=== PATIENT | male | born 1985 | race African-American/Black ===

== ENCOUNTER 2019-04-14 18:26 | Emergency (ER) | payer BC ==
[2019-04-14 18:31] VITALS: BP 157/62; PULSE 80; TEMP 98; BMI 21.2
--- NOTE | 2019-04-14 19:10 | PDOC ---
History of Present Illness - General Chief Complaint: Back Pain Stated Complaint: BACK PAIN Time Seen by Provider: 04/14/19 18:44 History Source: Patient Exam Limitations: No Limitations Past History - Travel Traveled outside of the country in the last 30 days: No Close contact w/someone who was outside of country & ill: No - Past Medical History Allergies/Adverse Reactions: Allergies Allergy/AdvReac Type Severity Reaction Status Date / Time No Known Allergies Allergy Verified 04/14/19 18:31 Home Medications: Ambulatory Orders Penicillin V Potassium [Pen Vee K -] 500 mg PO TID 12/25/15 Cyclobenzaprine HCl [Flexeril -] 10 mg PO HS #10 tablet 04/14/19 Ibuprofen 600 mg PO Q6H #30 tablet 04/14/19 COPD: No - Psycho Social/Smoking Cessation Hx Smoking History: Never smoked Have you smoked in the past 12 months: Yes Number of Cigarettes Smoked Daily: 20 Hx Alcohol Use: No Drug/Substance Use Hx: No Substance Use Type: None Review of Systems - Review of Systems Able to Perform ROS?: Yes Comments:: 04/14/19 19:08 CONSTITUTIONAL: Absent: fever, chills, diaphoresis, generalized weakness, malaise, loss of appetite GASTROINTESTINAL: Absent: abdominal pain, abdominal distension, nausea, vomiting, diarrhea, constipation, melena, hematochezia GENITOURINARY: Absent: dysuria, frequency, urgency, hesitancy, hematuria, flank pain, genital pain MUSCULOSKELETAL: Present: low back pain Absent: arthralgia, joint swelling SKIN: Absent: rash, itching, pallor NEUROLOGIC: Absent: headache, focal weakness or paresthesias, dizziness, unsteady gait, seizure, mental status changes, bladder or bowel incontinence PSYCHIATRIC: Absent: anxiety, depression, suicidal or homicidal ideation, hallucinations. Is the patient limited Beninese proficient: No *Physical Exam - Vital Signs Last Vital Signs Temp Pulse Resp BP Pulse Ox 98 F 80 18 157/62 100 04/14/19 18:28 04/14/19 18:28 04/14/19 18:28 04/14/19 18:28 04/14/19 18:28 - Physical Exam 04/14/19 19:09 GENERAL: Well developed, well nourished. Awake and alert. No acute distress. NECK: Supple. Full ROM. No JVD. Carotid pulses 2+ and symmetric, without bruits. No thyromegaly. No lymphadenopathy. MUSCULOSKELETAL TTP of the L paraspinous muscles, L3-L5, with palpable knot. No midline tenderness, negative straight leg raise test. Decreased ROM of the back d/t pain. Normal range of motion at all joints. No bony deformities or tenderness. No CVA tenderness. EXTREMITIES: No cyanosis. No clubbing. No edema. No calf tenderness. SKIN: Warm and dry. Normal capillary refill. No rashes. No jaundice. NEUROLOGICAL: Alert, awake, appropriate. Cranial nerves 2-12 intact. No deficits to light touch and temperature in face, upper extremities and lower extremities. No motor deficits in the in face, upper extremities and lower extremities. Normoreflexic in the upper and lower extremities. Normal speech. Toes are down- going bilaterally. Gait is normal without ataxia. PSYCHIATRIC: Cooperative. Good eye contact. Appropriate mood and affect. Medical Decision Making - Medical Decision Making 04/14/19 19:23 The patient is a 34-year-old male no past medical history who presents the ER with 1 day of low back pain. 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 He states that the pain was very strong so he called out of work and came to the ER for evaluation. He denies fevers, chills, trauma, nausea, vomiting, urinary symptoms, saddle anesthesia, bladder or bowel incontinence and numbness and tingling to the extremities. A/P: Low back pain -Pt with TTP of the L paraspinous muscles, L3-L5, with palpable knot consistent with muscle spasm. No midline tenderness, negative straight leg raise test. -No trauma, or fever. No saddle anesthesia or bladder/bowel incontinence. No CVA tenderness. -Pt is neurologically intact on exam with no focal findings. -Toradol given with relief of symptoms -DC home. Ortho follow up given for if symptoms do not resolve. -I discussed the physical exam findings, ancillary test results and final diagnoses with the patient. I answered all of the patient's questions. The patient was satisfied with the care received and felt comfortable with the discharge plan and treatment plan. The Patient agrees to follow up with the primary care physician/specialist within 24-72 hours. Return precautions were given. Discharge - Discharge Information Problems reviewed: Yes Clinical Impression/Diagnosis: Low back pain Qualifiers: Chronicity: acute Back pain laterality: left Sciatica presence: without sciatica Qualified Code(s): M54.5 - Low back pain Condition: Stable Disposition: HOME - Admission No - Follow up/Referral Referrals: Derrick Fisher DO [Staff Physician] - - Patient Discharge Instructions Patient Printed Discharge Instructions: DI for Low Back Pain Additional Instructions: You have low back pain due to a muscle spasm. Please take ibuprofen 600 mg 4 times a day not to exceed 3000 mg a day starting tomorrow. You were also prescribed Flexeril. Please take this medication every 8 hours for the first day. Then take the medication before you go to bed. Do not drive after taking this medication as it may make you sleepy. You may use warm compresses on your back to help with her symptoms. Please follow-up with your primary care doctor. If your symptoms do not resolve in 3-5 days, follow-up with orthopedics. A referral has been provided for you. Return to the emergency department if you have worsening back pain, bladder or bowel incontinence, numbness and tingling in her legs, changes in the way you walk, or any new or worsening symptoms. - Post Discharge Activity Work/Back to School Note: Back to Work
[2019-04-14] MEDS ORDERED: KETOROLAC TROMETHAMINE 30 MG/1 ML VIAL IM ONE (19:20)
[2019-04-14] MEDS ORDERED: LIDOCAINE 5% TOPICAL PATCH TP ONE (19:21)
[2019-04-14] MEDS ORDERED: KETOROLAC TROMETHAMINE 30 MG/1 ML VIAL ONE (19:24)
[2019-04-14] MEDS ORDERED: LIDOCAINE 5% TOPICAL PATCH ONE (19:24)
== END 2019-04-14 19:40 | disposition home or self-care (01) ==
LOC: JERFT 18:26
PROC: 3E0233Z Introduction of Anti-inflammatory into Muscle, Percutaneous Approach (ICD-10-PCS; principal; 2019-04-14)
DX: M54.5 Low back pain (principal); Z87.891 Personal history of nicotine dependence
CPT/HCPCS: 99282-25

== ENCOUNTER 2019-05-15 22:52 | Emergency (ER) | payer BC ==
[2019-05-15 22:56] VITALS: BP 143/76; PULSE 64; TEMP 98; BMI 21.2
--- NOTE | 2019-05-16 00:37 | PDOC ---
History of Present Illness - General Chief Complaint: Pain Stated Complaint: BACK PAIN Time Seen by Provider: 05/16/19 00:37 - History of Present Illness Initial Comments: HPI: 34yo M with no reported PMH presenting with lower back pain since 10am today. Patient states he has had this pain before. Has not taken anything for his pain. Reports bending down and then feeling pain on the right side of his lower back. Denies saddle anesthesia or urinary/stool incontinence. No night sweats or unexpected weight changes. Denies fever, chills, chest pain, or shortness of breath. PCP: none ROS: Constitutional: no fever, no chills HEENT: no throat pain, no dysphagia Cardiovascular: no chest pain, no palpitations Respiratory: no cough, no shortness of breath Gastrointestinal: no abdominal pain, no nausea Genitourinary: no dysuria, no hematuria Musculoskeletal: no myalgia, + back pain Skin: no rash, no itching Neurologic: no headache, no weakness Psych: no agitation, no anxiety PE: General: Awake, alert, and fully oriented, in no acute distress Head: No signs of trauma Eyes: EOMI, sclera anicteric ENT: Moist mucus membranes Neck: Normal ROM, supple Lungs: Lungs clear, Normal breath sounds Cardio: Regular rhythm, S1 and S2 present Abdomen: Soft, nontender Extremities: Normal range of motion, 5/5 strength and equal sensation in BLE and BUE, Distal pulses present, 2+ patellar reflexes SKIN: Warm, Dry, normal turgor Neurologic: Cranial nerves II through XII grossly intact. Normal speech Back: Tender to palpation in lumbar area, right of midline overlying paraspinal muscles, no step-offs/deformities/fluctuance; no overlying wound or lesion; negative straight leg test bilaterally; patient able to ambulate with steady gait ED Course/MDM: DDX including but not limited to lumbago, muscle spasm, cauda equina, nephrolithiasis Presentation consistent with lumbago Patient without red flag back pain signs; low suspicion for cauda equina Imaging deferred at this time as pain is likely muscular in origin Toradol IM Medrol dose patricio, Flexeril prescription Primary care referral Orthopedics referral Return precautions Stable for discharge Past History - Past Medical History Allergies/Adverse Reactions: Allergies Allergy/AdvReac Type Severity Reaction Status Date / Time codeine Allergy Verified 05/15/19 22:56 Home Medications: Ambulatory Orders Cyclobenzaprine HCl [Flexeril -] 10 mg PO HS #10 tablet 04/14/19 Ibuprofen 600 mg PO Q6H #30 tablet 04/14/19 Cyclobenzaprine HCl [Flexeril 10 mg] 10 mg PO HS PRN #10 tablet 05/16/19 Methylprednisolone [Medrol Dose Patricio] 4 mg PO ASDIR #21 tablet 05/16/19 COPD: No - Psycho Social/Smoking Cessation Hx Smoking History: Current every day smoker Have you smoked in the past 12 months: Yes Number of Cigarettes Smoked Daily: 20 Information on smoking cessation initiated: No Hx Alcohol Use: No Drug/Substance Use Hx: No Substance Use Type: None *Physical Exam - Vital Signs Last Vital Signs Temp Pulse Resp BP Pulse Ox 98 F 64 18 143/76 98 05/15/19 22:53 05/15/19 22:53 05/15/19 22:53 05/15/19 22:53 05/15/19 22:53 Discharge - Discharge Information Problems reviewed: Yes Clinical Impression/Diagnosis: Lumbago Qualifiers: Chronicity: acute Back pain laterality: right Sciatica presence: without sciatica Qualified Code(s): M54.5 - Low back pain Condition: Stable Disposition: HOME - Additional Discharge Information Prescriptions: Cyclobenzaprine HCl [Flexeril 10 mg] 10 mg PO HS PRN #10 tablet PRN Reason: Pain Methylprednisolone [Medrol Dose Patricio] 4 mg PO ASDIR #21 tablet - Follow up/Referral Referrals: Derrick Fisher DO [Staff Physician] - [facility] [Provider Group] - Patient Discharge Instructions Patient Printed Discharge Instructions: DI for Low Back Pain Additional Instructions: You came to the emergency department for back pain. We gave you a shot called toradol for the pain. Prescription sent to your pharmacy. Take as instructed. You can also take [id number] tylenol or motrin for pain. Follow the instructions on the medication bottle. Follow-up with a primary care provider within 72 hours to discuss this ED visit and to further evaluate your symptoms. Your workup is not complete until you do so. You have been referred to the [facility] in case you do not have a primary care doctor. Call and make an appointment at the number provided. We have referred you to an post closing specialist to further evaluate your back pain. Call and make an appointment at the number provided. Immediate medical attention is required if you have back pain and : numbness in the genital or rectal area, loss of bowel or bladder control, difficulty with urination; fever, unexplained weight loss, or other signs of illness or infection. If you think you are having an emergency, call for emergency medical - Post Discharge Activity
[2019-05-16] MEDS ORDERED: KETOROLAC TROMETHAMINE 30 MG/1 ML VIAL IM ONE (01:01)
--- NOTE | 2019-05-16 01:07 | PDOC ---
Attending Attestation - Resident Resident Name: Keely Llamas - ED Attending Attestation I have performed the following: I have examined & evaluated the patient, The case was reviewed & discussed with the resident, I agree w/resident's findings & plan - HPI HPI: 05/16/19 01:05 see resident hpi - Physicial Exam PE: 05/16/19 01:05 agree with resident exam - Medical Decision Making 05/16/19 01:06 34-year-old male with right low back pain after heavy lifting On exam there is right paravertebral tenderness, there is no midline tenderness or step-off Patient is neuro vascularly, motor intact There is no bowel or urinary incontinence or saddle anesthesia to suggest spinal cord involvement/cauda equina Patient will be given lifting precautions, excuse from work and follow-up with orthopedics for further evaluation This was explained to him at length and he has verbalized understanding of instructions
[2019-05-16] MEDS ORDERED: KETOROLAC TROMETHAMINE 30 MG/1 ML VIAL ONE (01:11)
== END 2019-05-16 01:30 | disposition home or self-care (01) ==
LOC: JER 22:52
PROC: 3E0233Z Introduction of Anti-inflammatory into Muscle, Percutaneous Approach (ICD-10-PCS; principal; 2019-05-15)
DX: M54.5 Low back pain (principal); F17.210 Nicotine dependence, cigarettes, uncomplicated; Z88.5 Allergy status to narcotic agent
CPT/HCPCS: 99282-25

== ENCOUNTER 2020-04-15 08:10 | Emergency (ER) | payer BC, OTHER | END 2020-04-15 09:06 | disposition home or self-care (01) | LOC: JER 08:10 | DX: M54.5 Low back pain (principal) | CPT/HCPCS: 99281-25 ==